=== PATIENT | female | born 1965 | race Caucasian/White ===

== ENCOUNTER 2017-09-08 09:38 | Day surgery (SDC) | payer BC ==
[~2017-09-08 09:38] MED LIST: Lactated Ringers 1,000 ML IV SCH; Sodium Chloride 0.9% 10 ML Syringe FLUSH PRN; Sodium Chloride 0.9% 2.5 ML Syringe FLUSH PRN
--- NOTE | 2017-09-08 10:47 | PCM.PREANE ---
Preanesthetic Assessment - Procedure Proposed Procedure: colonoscopy - Anesthesia/Transfusion/Family Hx Anesthesia History: Prior Anesthesia Without Reaction Family History of Anesthesia Reaction: Yes (Uncle in 50's from anesthesia, specific details not known) Transfusion History: No Prior Transfusion(s) - Review of Systems General: No Symptoms Pulmonary: No Symptoms, Cough (smoking and asthma induced cough at times) Cardiovascular: No Symptoms Gastrointestinal: No Symptoms Neurological: No Symptoms Other: Reports: None - Physical Assessment NPO Status Date: 09/06/17 NPO Status Time: 22:00 O2 Sat by Pulse Oximetry: 96 Respiratory Rate: 14 Vital Signs: Last Vital Signs Temp 36.5 C 09/08/17 09:45 Pulse 79 09/08/17 09:45 Resp 14 09/08/17 09:45 BP 108/65 09/08/17 09:45 Pulse Ox 96 09/08/17 09:45 Height: 1.77 m Weight: 90.718 kg ASA Class: 2 Mental Status: Alert & Oriented x3 Dentition: Reports: Normal Dentition Thyro-Mental Finger Breadths: 3 Mouth Opening Finger Breadths: 3 ROM/Head Extension: Full Lungs: Clear to Auscultation, Normal Respiratory Effort Cardiovascular: Regular Rate, Regular Rhythm - Allergies Allergies/Adverse Reactions: Allergies Allergy/AdvReac Type Severity Reaction Status Date / Time bacitracin [From Cortisporin] Allergy Hives Verified 09/05/17 11:36 cefuroxime [From Ceftin] Allergy Hives Verified 09/05/17 11:36 cephalexin [From Keflex] Allergy Hives Verified 09/05/17 11:36 ciprofloxacin Allergy Anaphylactic Verified 09/05/17 11:36 Shock clarithromycin [From Biaxin] Allergy Hives Verified 09/05/17 11:36 diclofenac Allergy Cannot Verified 09/05/17 11:36 Remember hydrocortisone Allergy Hives Verified 09/05/17 11:36 [From Cortisporin] iodine Allergy Hives Verified 09/05/17 11:36 moxifloxacin [From Avelox] Allergy Hives Verified 09/05/17 11:36 neomycin [From Cortisporin] Allergy Hives Verified 09/05/17 11:36 polymyxin B Allergy Hives Verified 09/05/17 11:36 [From Cortisporin] shellfish derived Allergy Hives Verified 09/05/17 11:36 sulfamethoxazole Allergy Hives Verified 09/05/17 11:36 [From ] trimethoprim [From ] Allergy Hives Verified 09/05/17 11:36 - Acknowledgements Anesthesia Type Planned: MAC Pt an Appropriate Candidate for the Planned Anesthesia: Yes Alternatives and Risks of Anesthesia Discussed w Pt/Guardian: Yes Pt/Guardian Understands and Agrees with Anesthesia Plan: Yes PreAnesthesia Questionnaire HEENT History: Reports: Allergic Rhinitis, Other (See Below) (Titanium implant to ear) Other HEENT History: wears glasses Cardiovascular History: Reports: Hypertension, Other (See Below) Other Cardiovascular History: states "mild mitral valve prolapse", no murmur auscultated Respiratory History: Reports: Asthma Gastrointestinal History: Reports: Other (See Below) Other Gastrointestinal History: occasional heartburn and reflux Genitourinary History: Reports: Renal Calculus 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: Musculoskeletal History: Reports: Fracture Other Musculoskeletal History: hx fx arm - Past Surgical History Head Surgeries/Procedures: Reports: Other (See Below) HEENT Surgical History: Reports: Tonsillectomy, Other (See Below) Other HEENT Surgeries/Procedures: hx ear surgery with titanium implant to left ear, mastoidectomy Female Surgical History: Reports: Section, Hysterectomy - SUBSTANCE USE Smoking Status *Q: Current Every Day Smoker Tobacco Use Within Last Twelve Months: Cigarettes Recreational Drug Use History: No - HOME MEDS Home Medications: Home Meds Albuterol Sulfate 1 inhalation NEB ASDIRECTED PRN 09/05/17 [History] Cetirizine HCl [Allergy Relief] 10 mg PO DAILY 09/05/17 [History] Cholecalciferol (Vitamin D3) [Vitamin D3] 50,000 units PO ASDIRECTED 09/05/17 [ History] Ergocalciferol (Vitamin D2) [Vitamin D2] 1,000 units PO DAILY 09/05/17 [History] Fluticasone Propionate [Flonase Allergy Relief] 1 spray NASBOTH ASDIRECTED 09/05 [History] Ibuprofen 800 mg PO ASDIRECTED PRN 09/05/17 [History] Nebivolol [Bystolic] 5 mg PO BEDTIME 09/05/17 [History] - CURRENT (IN HOUSE) MEDS Current Meds: Current Medications Lactated Ringer's (Ringers, Lactated) 1,000 mls @ 125 mls/hr IV ASDIRECTED JEIMY Last Admin: 09/08/17 10:12 Dose: 125 mls/hr Sodium Chloride (Saline Flush) 10 ml FLUSH ASDIRECTED PRN PRN Reason: Keep Vein Open Sodium Chloride (Saline Flush) 2.5 ml FLUSH ASDIRECTED PRN PRN Reason: Keep Vein Open
[2017-09-08] MEDS ORDERED: Lidocaine 2% 5 ML SDV ONE (10:48)
[2017-09-08] MEDS ORDERED: Propofol 200 MG/20 ML SDV ONE (10:48)
--- NOTE | 2017-09-08 12:55 | PCM.POSTAN ---
POST ANESTHESIA ASSESSMENT - MENTAL STATUS Mental Status: Alert - VITAL SIGNS Pulse Rate: 67 SaO2: 93 Resp Rate: 16 Blood Pressure: 105/58 - RESPIRATORY Respiratory Status: Respiratory Rate WNL - CARDIOVASCULAR CV Status: Pulse Rate WNL, Blood Pressure Stable - GASTROINTESTINAL GI Status: No Symptoms - POST OP HYDRATION Hydration Status: Adequate & Stable
--- NOTE | 2017-09-08 13:06 | PCM48HPAN ---
Post Anesthesia Note - EVALUATION WITHIN 48HRS OF ANESTHETIC Vital Signs in Normal Range: Yes Patient Participated in Evaluation: Yes Respiratory Function Stable: Yes Airway Patent: Yes Cardiovascular Function Stable: Yes Hydration Status Stable: Yes Pain Control Satisfactory: Yes Nausea and Vomiting Control Satisfactory: Yes Mental Status Recovered: Yes
--- NOTE | 2017-09-08 13:33 | PCM.OPNOTE ---
- General Post-Op/Procedure Note Date of Surgery/Procedure: 09/08/17 Operative Procedure(s): Screening colonoscopy Findings: diverticulosis Pre Op Diagnosis: screening colonoscopy Post-Op Diagnosis: diverticulosis Anesthesia Technique: MAC Primary Surgeon: Melba Jordan Condition: Good Free Text/Narrative:: Intake & Output 09/07/17 09/08/17 09/08/17 22:59 06:59 14:59 Intake Total 700 Balance 700
--- NOTE | 2017-09-09 13:22 | OR ---
SURGEON: LUPE GREENE MD DATE OF PROCEDURE: 09/08/2017 PREOPERATIVE DIAGNOSIS: Screening colonoscopy. POSTOPERATIVE DIAGNOSIS: Diverticulosis. PROCEDURE PERFORMED: Screening colonoscopy. ANESTHESIA: MAC. INSTRUMENT USED: Olympus colonoscope. EXTENT OF EXAM: To the cecum. PREPARATION: Good. LIMITATIONS: None. INDICATIONS: The patient is a 52-year-old female, who presents for first time screening colonoscopy. We discussed the procedure as well as expected perioperative course. We discussed the risks, including bleeding, infection, damage to surrounding structures, including perforation. The patient verbalized understanding and wishes to proceed. PROCEDURE IN DETAIL: The patient was brought to the endoscopy suite and placed in left lateral decubitus position. A time-out was completed verifying the patient's name, age, date of , allergies, and procedure to be performed. Monitored anesthesia care was induced and continuous oxygen was provided via nasal cannula throughout the procedure. After adequate sedation was achieved, digital rectal exam was performed. This exam was within normal limits. A well lubricated colonoscope was inserted in the rectum and advanced under direct visualization to the level of cecum. Cecum was identified by both visual and anatomic landmarks. A photograph was taken of the cecal cap but due to looping of the scope more proximally, I was unable to retroflex the scope within the cecum. The scope was then fully withdrawn while examining the color, texture, anatomy, and integrity of the mucosa from the cecum to the anal canal. The patient was found to have mild diverticulosis within the distal colon. The scope was then brought to the rectum and retroflexed to allow visualization of the anal canal opening. This appeared normal and a photograph was taken. The scope was straightened out and removed from the patient. The cecum to anus time was 8 minutes. The patient tolerated the procedure well and was taken to PACU in stable condition. ENDOSCOPIC DIAGNOSIS: Diverticulosis. RECOMMENDATIONS: Follow up in clinic in 2 weeks. CHRISTINA UPTON /[id number]
== END 2017-09-08 13:10 | disposition home or self-care (01) ==
LOC: MW.SDS 09:38
PROVIDERS: ATTEND Surgery
DX: Z12.11 Encounter for screening for malignant neoplasm of colon (principal); K57.30 Diverticulosis of large intestine without perforation or abscess without bleeding; K43.2 Incisional hernia without obstruction or gangrene; J45.909 Unspecified asthma, uncomplicated; I10 Essential (primary) hypertension; F17.210 Nicotine dependence, cigarettes, uncomplicated; Z80.0 Family history of malignant neoplasm of digestive organs; Z88.1 Allergy status to other antibiotic agents; Z88.8 Allergy status to other drugs, medicaments and biological substances; Z91.013 Allergy to seafood; Z79.899 Other long term (current) drug therapy
CPT/HCPCS: 45378; J7120; J2704

== ENCOUNTER 2019-07-07 17:01 | Emergency (ER) | payer BC ==
[2019-07-07] MEDS ORDERED: Sodium Chloride 0.9% 1,000 ML IV ONE (17:24)
[2019-07-07] MEDS ORDERED: methylPREDNISolone Sodium Succinate 125 MG/2 ML SDV IVPUSH ONE (17:26)
--- NOTE | 2019-07-07 17:41 | EDM.PDOC ---
ED HPI GENERAL MEDICAL PROBLEM - General Chief Complaint: Respiratory Problem Stated Complaint: PNEUMONIA Time Seen by Provider: 07/07/19 17:02 Source of Information: Reports: Patient History Limitations: Reports: No Limitations - History of Present Illness INITIAL COMMENTS - FREE TEXT/NARRATIVE: HISTORY AND PHYSICAL: History of present illness: Patient is a 54-year-old female presents to the ED today with concern of left lower lung pain, cough with prior diagnosis of pneumonia. Patient states on Monday Dr. Giraldo gave her Augmentin for a possible pneumonia. Patient states her symptoms were getting worse so she saw Dr. Sutherland on Monday who added azithromycin to her antibiotics. Patient states Dr. Sutherland also did a chest x- ray which showed she had a left lower lung pneumonia. Patient states she's been taking the antibiotics as prescribed to her that starting today he has had left lower lung pain, coughing. Patient states she does feel short of breath when she gets into "coughing attacks." Patient states she does have albuterol nebulizers at home which she has been using without relief of symptoms. Patient states she does smoke about a pack of cigarettes a day and has so for 30-40 years. Patient states she has a history of hysterectomy. Patient denies any other health history or any other symptoms or concerns. Patient denies fever, chills, chest pain, shortness of breath. Denies headache, neck stiff ness, change in vision, syncope, or near syncope. Denies nausea, vomiting, abdominal pain, diarrhea, constipation, or dysuria. Has not noted any blood in urine or stool. Patient has been eating and drinking appropriately. Review of systems: As per history of present illness and below otherwise all systems reviewed and negative. Past medical history: As per history of present illness and as reviewed below otherwise noncontributory. Surgical history: As per history of present illness and as reviewed below otherwise noncontributory. Social history: See social history for further information Family history: As per history of present illness and as reviewed below otherwise noncontributory. Physical exam: General: Patient is alert, oriented, and in no acute distress. Patient sitting comfortably on exam table. HEENT: Atraumatic, normocephalic, pupils equal and reactive bilaterally, negative for conjunctival pallor or scleral icterus, mucous membranes moist, TMs normal bilaterally, throat clear, neck supple, nontender, trachea midline. No drooling or trismus noted. No meningeal signs. No hot potato voice noted. Lungs: Mild-moderate wheezing to auscultation throughout all lung salter, breath sounds equal bilaterally, chest nontender. Heart: S1S2, regular rate and rhythm without overt murmur Abdomen: Soft, nondistended, nontender. Negative for masses or hepatosplenomegaly. Negative for costovertebral tenderness. Pelvis: Stable nontender. Genitourinary: Deferred. Rectal: Deferred. Skin: Intact, warm, dry. No lesions or rashes noted. Extremities: Atraumatic, negative for cords or calf pain. Neurovascular unremarkable. Neuro: Awake, alert, oriented. Cranial nerves II through XII unremarkable. Cerebellum unremarkable. Motor and sensory unremarkable throughout. Exam nonfocal. Notes: Discussed the importance for follow-up with a primary care provider. Voices understanding and is agreeable to plan of care. Denies any further questions or concerns at this time. Diagnostics: CBC, CMP, UA, EKG, chest x-ray, d-dimer Therapeutics: Saline, solumedrol Prescription: Prednisone, DuoNeb Impression: Cough H/O pneumonia Plan: 1. Take medication as prescribed. You can alternate ibuprofen and Tylenol as directed for pain and discomfort. 2. Follow up with your primary care provider as discussed. Return to the ED as needed and as discussed. Definitive disposition and diagnosis as appropriate pending reevaluation and review of above. left lower lung Pain Score (Numeric/FACES): 4 headache Pain Score (Numeric/FACES): 3 - Related Data Allergies Allergy/AdvReac Type Severity Reaction Status Date / Time bacitracin [From Cortisporin] Allergy Hives Verified 07/07/19 17:11 cefuroxime [From Ceftin] Allergy Hives Verified 07/07/19 17:11 cephalexin [From Keflex] Allergy Hives Verified 07/07/19 17:11 ciprofloxacin Allergy Anaphylactic Verified 07/07/19 17:11 Shock clarithromycin [From Biaxin] Allergy Hives Verified 07/07/19 17:11 diclofenac Allergy Cannot Verified 07/07/19 17:11 Remember hydrocortisone Allergy Hives Verified 07/07/19 17:11 [From Cortisporin] iodine Allergy Hives Verified 07/07/19 17:11 moxifloxacin [From Avelox] Allergy Hives Verified 07/07/19 17:11 neomycin [From Cortisporin] Allergy Hives Verified 07/07/19 17:11 polymyxin B Allergy Hives Verified 07/07/19 17:11 [From Cortisporin] shellfish derived Allergy Hives Verified 07/07/19 17:11 sulfamethoxazole Allergy Hives Verified 07/07/19 17:11 [From Septra] trimethoprim [From Septra] Allergy Hives Verified 07/07/19 17:11 Home Meds: Home Meds Albuterol Sulfate 1 inhalation NEB ASDIRECTED PRN 09/05/17 [History] Cetirizine HCl [Allergy Relief] 10 mg PO DAILY 09/05/17 [History] Cholecalciferol (Vitamin D3) [Vitamin D3] 50,000 units PO ASDIRECTED 09/05/17 [ History] Ergocalciferol (Vitamin D2) [Vitamin D2] 1,000 units PO DAILY 09/05/17 [History] Fluticasone Propionate [Flonase Allergy Relief] 1 spray NASBOTH ASDIRECTED 09/05 [History] Ibuprofen 800 mg PO ASDIRECTED PRN 09/05/17 [History] Nebivolol [Bystolic] 5 mg PO BEDTIME 09/05/17 [History] Amoxicillin/Clavulanate K [Augmentin 875-125 MG] 1 tab PO DAILY 07/07/19 [ History] Azithromycin 500 mg PO DAILY 07/07/19 [History] Estradiol 1 patch WEEKLY 07/07/19 [History] Past Medical History HEENT History: Reports: Allergic Rhinitis, Other (See Below) Other HEENT History: wears glasses Cardiovascular History: Reports: Hypertension, Other (See Below) Other Cardiovascular History: states "mild mitral valve prolapse", no murmur auscultated Respiratory History: Reports: Asthma Gastrointestinal History: Reports: Other (See Below) Other Gastrointestinal History: occasional heartburn and reflux Genitourinary History: Reports: Renal Calculus 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: Musculoskeletal History: Reports: Fracture Other Musculoskeletal History: hx fx arm - Past Surgical History Head Surgeries/Procedures: Reports: Other (See Below) HEENT Surgical History: Reports: Tonsillectomy, Other (See Below) Other HEENT Surgeries/Procedures: hx ear surgery with titanium implant to left ear, mastoidectomy GI Surgical History: Reports: Colonoscopy Female Surgical History: Reports: Section, Hysterectomy, Salpingo- Oophorectomy Social & Family History - Family History Family Medical History: Noncontributory - Tobacco Use Smoking Status *Q: Current Every Day Smoker Years of Tobacco use: 30 Packs/Tins Daily: 1 - Recreational Drug Use Recreational Drug Use: No ED ROS GENERAL - Review of Systems Review Of Systems: ROS reveals no pertinent complaints other than HPI. ED EXAM, GENERAL - Physical Exam Exam: See Below (See dictation) Course - Vital Signs Last Recorded V/S: Last Vital Signs Temp 97.3 F 07/07/19 17:08 Pulse 86 07/07/19 17:08 Resp 18 07/07/19 17:08 BP 134/75 07/07/19 17:08 Pulse Ox 96 07/07/19 17:08 - Orders/Labs/Meds Orders: Active Orders 24 hr Category Date Time Status EKG Documentation Completion [RC] STAT Care 07/07/19 17:24 Active Labs: Laboratory Tests 07/07/19 07/07/19 07/07/19 Range/Units 17:26 17:30 17:30 WBC 7.55 (4.0-11.0) K/uL RBC 5.33 (4.30-5.90) M/uL Hgb 16.8 H (12.0-16.0) g/dL Hct 50.4 H (36.0-46.0) % MCV 94.6 (80.0-98.0) fL MCH 31.5 (27.0-32.0) pg MCHC 33.3 (31.0-37.0) g/dL RDW Std Deviation 46.2 (28.0-62.0) fl RDW Coeff of Shakila 13 (11.0-15.0) % Plt Count 257 (150-400) K/uL MPV 10.70 (7.40-12.00) fL Neut % (Auto) 56.7 (48.0-80.0) % Lymph % (Auto) 33.5 (16.0-40.0) % Caroline % (Auto) 7.5 (0.0-15.0) % Eos % (Auto) 2.0 (0.0-7.0) % Baso % (Auto) 0.3 (0.0-1.5) % Neut # (Auto) 4.3 (1.4-5.7) K/uL Lymph # (Auto) 2.5 H (0.6-2.4) K/uL Caroline # (Auto) 0.6 (0.0-0.8) K/uL Eos # (Auto) 0.2 (0.0-0.7) K/uL Baso # (Auto) 0.0 (0.0-0.1) K/uL Nucleated RBC % 0.0 /100WBC Nucleated RBCs # 0 K/uL D-Dimer, Quantitative 0.22 (0.0-0.50) mg/L FEU Sodium (136-145) mmol/L Potassium (3.5-5.1) mmol/L Chloride (98-107) mmol/L Carbon Dioxide (21.0-32.0) mmol/L BUN (7.0-18.0) mg/dL Creatinine (0.6-1.0) mg/dL Est Cr Clr Drug Dosing mL/min Estimated GFR (MDRD) ml/min Glucose (74-106) mg/dL Calcium (8.5-10.1) mg/dL Total Bilirubin (0.2-1.0) mg/dL AST (15-37) IU/L ALT (14-63) IU/L Alkaline Phosphatase (46-116) U/L Total Protein (6.4-8.2) g/dL Albumin (3.4-5.0) g/dL Globulin (2.6-4.0) g/dL Albumin/Globulin Ratio (0.9-1.6) Urine Color YELLOW Urine Appearance CLEAR Urine pH 6.0 (5.0-8.0) Ur Specific [place] 1.025 (1.001-1.035) Urine Protein NEGATIVE (NEGATIVE) mg/dL Urine Glucose (UA) NEGATIVE (NEGATIVE) mg/dL Urine Ketones NEGATIVE (NEGATIVE) mg/dL Urine Occult Blood NEGATIVE (NEGATIVE) Urine Nitrite NEGATIVE (NEGATIVE) Urine Bilirubin NEGATIVE (NEGATIVE) Urine Urobilinogen 0.2 (<2.0) EU/dL Ur Leukocyte Esterase NEGATIVE (NEGATIVE) 07/07/19 Range/Units 17:30 WBC (4.0-11.0) K/uL RBC (4.30-5.90) M/uL Hgb (12.0-16.0) g/dL Hct (36.0-46.0) % MCV (80.0-98.0) fL MCH (27.0-32.0) pg MCHC (31.0-37.0) g/dL RDW Std Deviation (28.0-62.0) fl RDW Coeff of Shakila (11.0-15.0) % Plt Count (150-400) K/uL MPV (7.40-12.00) fL Neut % (Auto) (48.0-80.0) % Lymph % (Auto) (16.0-40.0) % Caroline % (Auto) (0.0-15.0) % Eos % (Auto) (0.0-7.0) % Baso % (Auto) (0.0-1.5) % Neut # (Auto) (1.4-5.7) K/uL Lymph # (Auto) (0.6-2.4) K/uL Caroline # (Auto) (0.0-0.8) K/uL Eos # (Auto) (0.0-0.7) K/uL Baso # (Auto) (0.0-0.1) K/uL Nucleated RBC % /100WBC Nucleated RBCs # K/uL D-Dimer, Quantitative (0.0-0.50) mg/L FEU Sodium 142 (136-145) mmol/L Potassium 4.3 (3.5-5.1) mmol/L Chloride 105 (98-107) mmol/L Carbon Dioxide 28.5 (21.0-32.0) mmol/L BUN 13 (7.0-18.0) mg/dL Creatinine 0.7 (0.6-1.0) mg/dL Est Cr Clr Drug Dosing 100.51 mL/min Estimated GFR (MDRD) > 60.0 ml/min Glucose 83 (74-106) mg/dL Calcium 8.9 (8.5-10.1) mg/dL Total Bilirubin 0.2 (0.2-1.0) mg/dL AST 14 L (15-37) IU/L ALT 27 (14-63) IU/L Alkaline Phosphatase 85 (46-116) U/L Total Protein 8.1 (6.4-8.2) g/dL Albumin 4.1 (3.4-5.0) g/dL Globulin 4.0 (2.6-4.0) g/dL Albumin/Globulin Ratio 1.0 (0.9-1.6) Urine Color Urine Appearance Urine pH (5.0-8.0) Ur Specific [place] (1.001-1.035) Urine Protein (NEGATIVE) mg/dL Urine Glucose (UA) (NEGATIVE) mg/dL Urine Ketones (NEGATIVE) mg/dL Urine Occult Blood (NEGATIVE) Urine Nitrite (NEGATIVE) Urine Bilirubin (NEGATIVE) Urine Urobilinogen (<2.0) EU/dL Ur Leukocyte Esterase (NEGATIVE) Meds: Medications Discontinued Medications Generic Name Dose Route Start Last Admin Trade Name Freq PRN Reason Stop Dose Admin Sodium Chloride 1,000 mls @ 999 mls/hr 07/07/19 17:24 07/07/19 17:38 Normal Saline IV 07/07/19 18:24 999 mls/hr BOLUS ONE Administration Methylprednisolone Sodium Succinate 125 mg 07/07/19 17:26 07/07/19 17:38 Solu-Medrol IVPUSH 07/07/19 17:27 125 mg ONETIME ONE Administration Departure - Departure Time of Disposition: 18:33 Disposition: Home, Self-Care 01 Clinical Impression: Cough, History of pneumonia - Discharge Information Referrals: Charles Sutherland MD [Primary Care Provider] - Forms: ED Department Discharge Additional Instructions: The following information is given to patients seen in the emergency department who are being discharged to home. This information is to outline your options for follow-up care. We provide all patients seen in our emergency department with a follow-up referral. The need for follow-up, as well as the timing and circumstances, are variable depending upon the specifics of your emergency department visit. If you don't have a primary care physician on staff, we will provide you with a referral. We always advise you to contact your personal physician following an emergency department visit to inform them of the circumstance of the visit and for follow-up with them and/or the need for any referrals to a consulting specialist. The emergency department will also refer you to a specialist when appropriate. This referral assures that you have the opportunity for follow-up care with a specialist. All of these measure are taken in an effort to provide you with optimal care, which includes your follow-up. Under all circumstances we always encourage you to contact your private physician who remains a resource for coordinating your care. When calling for follow-up care, please make the office aware that this follow-up is from your recent emergency room visit. If for any reason you are refused follow-up, please contact the [facility] Emergency Department at and asked to speak to the emergency department charge nurse. [facility] [address] [place] [id number] [facility] [address] [place] [id number] 1. Take medication as prescribed. You can alternate ibuprofen and Tylenol as directed for pain and discomfort. 2. Follow up with your primary care provider as discussed. Return to the ED as needed and as discussed. - My Orders Last 24 Hours: My Active Orders 07/07/19 17:24 EKG Documentation Completion [RC] STAT - Assessment/Plan Last 24 Hours: My Active Orders 07/07/19 17:24 EKG Documentation Completion [RC] STAT
[2019-07-07 18:16] LABS: BLOOD UREA NITROGEN,BUN 13 mg/dL (7.0-18.0); CARBON DIOXIDE,CO2 28.5 mmol/L (21.0-32.0); CHLORIDE,CL 105 mmol/L (98-107); GLUCOSE RANDOM 83 mg/dL (74-106); POTASSIUM,K 4.3 mmol/L (3.5-5.1); SODIUM,NA 142 mmol/L (136-145)
--- NOTE | 2019-07-07 18:23 | CR ---
INDICATION: History of pneumonia. Left chest pain. COMPARISON: None available. FINDINGS: PA and lateral views of the chest were obtained. The lungs are clear. No focal or diffuse infiltrates are present. There is a somewhat rectangular density superimposed over the left lower chest and the apex of the heart. This is not evident on the lateral view. This may be a pleural calcification or possibly a costal cartilage calcification. The heart is normal in size. The mediastinum is normal in appearance. The osseous structures are normal in appearance for the patient`s age. IMPRESSION: No active disease seen in the chest. Dictated by Caleb Hernandez MD @ Jul 07 2019 6:19PM Signed by Dr. Caleb Hernandez @ Jul 07 2019 6:21PM
== END 2019-07-07 18:50 | disposition home or self-care (01) ==
LOC: MW.ED 17:01
DX: R05 Cough (principal); Z87.01 Personal history of pneumonia (recurrent); J45.909 Unspecified asthma, uncomplicated; I10 Essential (primary) hypertension; F17.210 Nicotine dependence, cigarettes, uncomplicated; Z88.1 Allergy status to other antibiotic agents; Z88.6 Allergy status to analgesic agent; Z91.09 Other allergy status, other than to drugs and biological substances; Z88.2 Allergy status to sulfonamides; Z91.013 Allergy to seafood; Z79.51 Long term (current) use of inhaled steroids; Z79.899 Other long term (current) drug therapy
CPT/HCPCS: 36415; 71046; 80053; 81003; 85025; 85379; 93005; 96361; 96374; 99284; J2930; J7040; 99283

== ENCOUNTER 2019-12-20 00:49 | Emergency (ER) | payer BC ==
[2019-12-20] MEDS ORDERED: Ondansetron 4 MG/2 ML SDV IVPUSH ONE (01:11)
[2019-12-20] MEDS ORDERED: HYDROmorphone 1 MG/ML Syringe IVPUSH ONE (01:11)
[2019-12-20] MEDS ORDERED: Ondansetron 4 MG/2 ML SDV ONE (01:13)
[2019-12-20] MEDS ORDERED: HYDROmorphone 1 MG/ML Syringe ONE (01:13)
--- NOTE | 2019-12-20 01:21 | EDM.PDOC ---
ED HPI GENERAL MEDICAL PROBLEM - General Chief Complaint: Flank Pain Stated Complaint: POSSIBLE KIDNEY STONES Time Seen by Provider: 12/20/19 01:10 Source of Information: Reports: Patient - History of Present Illness INITIAL COMMENTS - FREE TEXT/NARRATIVE: The patient is a 54-year-old female who presents to the ER secondary to left- sided flank pain that started about 2 hours prior to arrival with associated nausea and vomiting secondary to the pain. She has never had anything like this before. No recent fevers, no abdominal pain although the flank pain seems to radiate to the left side of her abdomen, no right-sided pain, no diarrhea. The pain is a throbbing sensation. She has never had a kidney stone as previously mentioned but secondary to hysterectomy complication where her bladder had been lacerated during the surgery the patient had secondary surgeries performed and at one point she had developed pain for which she then received a CT scan of the abdomen and pelvis to make sure there were not any further developing complications. They were not but they did note that the patient did have an incidental 2 mm kidney stone in her left kidney. Right Flank Pain Score (Numeric/FACES): 8 - Related Data Allergies Allergy/AdvReac Type Severity Reaction Status Date / Time bacitracin [From Cortisporin] Allergy Hives Verified 07/07/19 17:11 cefuroxime [From Ceftin] Allergy Hives Verified 07/07/19 17:11 cephalexin [From Keflex] Allergy Hives Verified 07/07/19 17:11 ciprofloxacin Allergy Anaphylactic Verified 07/07/19 17:11 Shock clarithromycin [From Biaxin] Allergy Hives Verified 07/07/19 17:11 diclofenac Allergy Cannot Verified 07/07/19 17:11 Remember hydrocortisone Allergy Hives Verified 07/07/19 17:11 [From Cortisporin] iodine Allergy Hives Verified 07/07/19 17:11 moxifloxacin [From Avelox] Allergy Hives Verified 07/07/19 17:11 neomycin [From Cortisporin] Allergy Hives Verified 07/07/19 17:11 polymyxin B Allergy Hives Verified 07/07/19 17:11 [From Cortisporin] shellfish derived Allergy Hives Verified 07/07/19 17:11 sulfamethoxazole Allergy Hives Verified 07/07/19 17:11 [From Septra] trimethoprim [From Septra] Allergy Hives Verified 07/07/19 17:11 Home Meds: Home Meds Albuterol Sulfate 1 inhalation NEB ASDIRECTED PRN 09/05/17 [History] Cetirizine HCl [Allergy Relief] 10 mg PO DAILY 09/05/17 [History] Cholecalciferol (Vitamin D3) [Vitamin D3] 50,000 units PO ASDIRECTED 09/05/17 [ History] Ergocalciferol (Vitamin D2) [Vitamin D2] 1,000 units PO DAILY 09/05/17 [History] Fluticasone Propionate [Flonase Allergy Relief] 1 spray NASBOTH ASDIRECTED 09/05 [History] Ibuprofen 800 mg PO ASDIRECTED PRN 09/05/17 [History] Nebivolol [Bystolic] 5 mg PO BEDTIME 09/05/17 [History] Amoxicillin/Clavulanate K [Augmentin 875-125 MG] 1 tab PO DAILY 07/07/19 [ History] Azithromycin 500 mg PO DAILY 07/07/19 [History] estradioL [Estradiol] 1 patch WEEKLY 07/07/19 [History] Past Medical History HEENT History: Reports: Allergic Rhinitis, Other (See Below) Other HEENT History: wears glasses Cardiovascular History: Reports: Hypertension, Other (See Below) Other Cardiovascular History: states "mild mitral valve prolapse", no murmur auscultated Respiratory History: Reports: Asthma Gastrointestinal History: Reports: Other (See Below) Other Gastrointestinal History: occasional heartburn and reflux Genitourinary History: Reports: Renal Calculus [employer] History: Reports: Musculoskeletal History: Reports: Fracture Other Musculoskeletal History: hx fx arm - Past Surgical History Head Surgeries/Procedures: Reports: Other (See Below) HEENT Surgical History: Reports: Tonsillectomy, Other (See Below) Other HEENT Surgeries/Procedures: hx ear surgery with titanium implant to left ear, mastoidectomy GI Surgical History: Reports: Colonoscopy Female Surgical History: Reports: Section, Hysterectomy, Salpingo- Oophorectomy Social & Family History - Family History Family Medical History: Noncontributory ED ROS GENERAL - Review of Systems Review Of Systems: See Below (Positive for left flank pain, positive for nausea and vomiting, negative for fevers, negative for diarrhea, space all other Positives and pertinent negatives as per HPI. All other pertinent systems were reviewed and are negative) ED EXAM,LOWER BACK PAIN/INJURY - Physical Exam Exam: See Below Text/Narrative:: Constitutional: Obese, appears uncomfortable with colicky behavior HEENT: Normocephalic, Atraumatic, EOMI Neck: Normal range of motion, No stridor, trachea midline Respiratory: No respiratory distress, No tachypnea Cardiovascular: Deferred Gastrointestinal: Obese, abdomen is soft and nontender Genital / Urinary: Deferred Musculoskeletal: All four extremities present and atraumatic Back: FROM, left-sided flank pain present Integument: Warm, Dry, Color is ethnicity appropriate, No rash. Neuro: Alert, Awake, No focal deficits noted Psych: Affect, Judgement, mood normal Course - Vital Signs Text/Narrative:: Given that the patient's presentation is classic for renal colic and she does have a known kidney stone on the left, I do not feel that imaging is required at this time. The patient's allergies as well as her [place] controlled substance prescriptions have been reviewed. Patient will be given a dose of Dilaudid 1 mg IV and Zofran 4 mg IV, and a urinalysis obtained. Urinalysis is negative for infection and positive for hematuria. Given the entire clinical scenario, no CT scan the abdomen pelvis will be ordered at this time as discussed above. The patient is comfortable with and she is much more comfortable after dose of Dilaudid. She will be given 1 dose of [place] 10 mg while in the ER for more prolonged opioid effect and a prescription for Zofran as well as [place] as well as urology follow-up. Last Recorded V/S: Last Vital Signs Temp 37.2 C 12/20/19 00:56 Pulse 90 12/20/19 00:56 Resp 16 12/20/19 00:56 BP 135/85 12/20/19 00:56 Pulse Ox 99 12/20/19 00:56 - Orders/Labs/Meds Orders: Active Orders 24 hr Category Date Time Status Acetaminophen/HYDROcodone [[place] 325-5 MG] Med 12/20/19 01:42 Once 2 tab PO ONETIME ONE Labs: Laboratory Tests 12/20/19 Range/Units 01:00 Urine Color YELLOW Urine Appearance CLOUDY Urine pH 5.5 (5.0-8.0) Ur Specific Rudy >= 1.030 (1.001-1.035) Urine Protein 100 H (NEGATIVE) mg/dL Urine Glucose (UA) NEGATIVE (NEGATIVE) mg/dL Urine Ketones NEGATIVE (NEGATIVE) mg/dL Urine Occult Blood LARGE H (NEGATIVE) Urine Nitrite NEGATIVE (NEGATIVE) Urine Bilirubin NEGATIVE (NEGATIVE) Urine Urobilinogen 0.2 (<2.0) EU/dL Ur Leukocyte Esterase NEGATIVE (NEGATIVE) Urine RBC 75-100 H (0-2/HPF) Urine WBC 0-2 (0-5/HPF) Ur Epithelial Cells FEW (NONE-FEW) Urine Bacteria 2+ H (NEGATIVE) Urine Mucus LIGHT (NONE-MOD) Meds: Medications Discontinued Medications Generic Name Dose Route Start Last Admin Trade Name Freq PRN Reason Stop Dose Admin Hydromorphone HCl 1 mg 12/20/19 01:11 12/20/19 01:36 Dilaudid IVPUSH 12/20/19 01:12 1 mg ONETIME ONE Administration Hydromorphone HCl Confirm 12/20/19 01:13 12/20/19 01:30 Dilaudid Administered 12/20/19 01:14 Not Given Dose 1 mg .ROUTE .STK-MED ONE Ondansetron HCl 4 mg 12/20/19 01:11 12/20/19 01:14 Zofran IVPUSH 12/20/19 01:12 4 mg ONETIME ONE Administration Ondansetron HCl Confirm 12/20/19 01:13 12/20/19 01:17 Zofran Administered 12/20/19 01:14 Not Given Dose 4 mg .ROUTE .STK-MED ONE Departure - Departure Time of Disposition: 01:46 Disposition: Home, Self-Care 01 Condition: Good Clinical Impression: Renal colic on left side - Discharge Information Instructions: Renal Colic, [id number], Kidney Stones, [id number] Referrals: Charles Sutherland MD [Primary Care Provider] - Castro Camilo MD [Physician] - Forms: ED Department Discharge Sepsis Event Note - Evaluation Sepsis Screening Result: No Definite Risk - Focused Exam Vital Signs: Vital Signs Temp Pulse Resp BP Pulse Ox 12/20/19 00:56 37.2 C 90 16 135/85 99 Date Exam was Performed: 12/20/19 Time Exam was Performed: 01:42 - My Orders Last 24 Hours: My Active Orders 12/20/19 01:42 Acetaminophen/HYDROcodone [[place] 325-5 MG] 2 tab PO ONETIME ONE - Assessment/Plan Last 24 Hours: My Active Orders 12/20/19 01:42 Acetaminophen/HYDROcodone [[place] 325-5 MG] 2 tab PO ONETIME ONE
[2019-12-20] MEDS ORDERED: Acetaminophen/HYDROcodone 325-5 MG Tab PO ONE (01:42)
== END 2019-12-20 02:05 | disposition home or self-care (01) ==
LOC: MW.ED 00:49
DX: N23 Unspecified renal colic (principal); I10 Essential (primary) hypertension; J45.909 Unspecified asthma, uncomplicated; Z88.8 Allergy status to other drugs, medicaments and biological substances; Z88.1 Allergy status to other antibiotic agents; Z91.013 Allergy to seafood; Z88.2 Allergy status to sulfonamides; Z79.899 Other long term (current) drug therapy
CPT/HCPCS: 81001; 96374; 96375; 99284; A9270; J1170; J2405; 99283

== ENCOUNTER 2025-01-28 07:16 | Day surgery (SDC) | payer BC ==
[~2025-01-28 07:16] MED LIST changes: -Lactated Ringers 1,000 ML IV SCH; +Sodium Chloride 0.9% 20 ML SDV IV PRN
[2025-01-28] MEDS: Lactated Ringers 1,000 ML IV SCH (07:43)
[2025-01-28] MEDS ORDERED: propofoL 500 MG/50 ML 50 ML ONE (08:12)
[2025-01-28] MEDS ORDERED: Lidocaine 2% 5 ML SDV ONE (08:12)
[2025-01-28] MEDS ORDERED: Propofol 200 MG/20 ML SDV ONE (09:17)
== END 2025-01-28 10:10 | disposition home or self-care (01) ==
LOC: MW.SDS 07:16
PROVIDERS: ATTEND Surgery
DX: K57.30 Diverticulosis of large intestine without perforation or abscess without bleeding (principal); R19.4 Change in bowel habit; K21.9 Gastro-esophageal reflux disease without esophagitis; K44.9 Diaphragmatic hernia without obstruction or gangrene; K63.89 Other specified diseases of intestine; I10 Essential (primary) hypertension; E78.5 Hyperlipidemia, unspecified; F17.210 Nicotine dependence, cigarettes, uncomplicated; Z88.8 Allergy status to other drugs, medicaments and biological substances; Z79.82 Long term (current) use of aspirin; Z79.899 Other long term (current) drug therapy
CPT/HCPCS: 43239; 45331; J2003; J2704; J7120; 00813